=== PATIENT | female | born 1960 | race Caucasian/White ===

== ENCOUNTER → 2016-04-16 07:58 | Outpatient (CLI) | payer BC ==
[2013-10-31 18:40] VITALS: BMI 27.3
[~2016-04-16 07:58] MED LIST: ACETAMINOPHEN500 M1 PO; BAYER CHEWABLE81 MG PO; CALCIUM 600+D T1 TA1 PO; LIPITOR80 MG PO; MULTIPLE VITAMI1 TA1 PO; NECON 1/501 TAB PO
== END | disposition home or self-care (01) ==
LOC: D.RAD 07:58
DX: K21.9 Gastro-esophageal reflux disease without esophagitis (principal)

== ENCOUNTER 2016-08-08 06:24 | Emergency (ER) | payer BC ==
[2013-10-31 18:40] VITALS: BMI 27.3
[2016-08-08 07:09] LABS: BASOPHILS 0.4 % (0-2); HEMATOCRIT 45.7 % (36.0-48.0); HEMOGLOBIN 15.4 g/dL (12-16); IMMATURE GRANULOCYTES 0.1 % (0-5); LYMPHOCYTES 20.9 % (15-50); MCH 30.1 pg (26.0-34.0); MCHC 33.7 g/dL (31.0-37.0); MCV 89.3 fL (80.0-100.0); MEAN PLATELET VOLUME 10.6 fL (7.4-10.4); MONOCYTES 3.5 % (2-11); NEUTROPHILS 74.1 % (40-80); PLATELET COUNT 216 10x3/uL (130-400); RBC 5.12 10x6/uL (4.00-5.40); RDW 12.7 % (11.5-14.5); WBC 7.1 10x3/uL (4.8-10.8)
[2016-08-08 07:40] LABS: ALBUMIN 3.8 g/dL (3.4-5.0); ALKALINE PHOSPHATASE 97 U/L (46-116); ALT (SGPT) 42 U/L (10-68); BILIRUBIN - TOTAL 0.49 mg/dL (0.2-1.3); CALCIUM 8.9 mg/dL (8.5-10.1); CARBON DIOXIDE 20.2 mmol/L (21.0-32.0); CHOLESTEROL, TOTAL 195 mg/dL (0-200); CREATININE - SERUM 0.9 mg/dL (0.6-1.3); GLUCOSE 193 mg/dL (74-106); PROTEIN - SERUM 7.5 g/dL (6.4-8.2); TRIGLYCERIDE 91 mg/dL (30-200); UREA NITROGEN 18 mg/dL (7-18); eGFR NON AFRICAN AMERICAN 69 mL/min (90-120)
[2016-08-08 08:02] LABS: AMYLASE - SERUM 53 U/L (25-115); CALC OSMOLALITY 285 mosm/kg (275-300); CHLORIDE - SERUM 104 mmol/L (98-107); CHOL - HDL RATIO 3.7 ratio (2.3-4.1); CKMB 0.4 U/L (0.0-3.6); CREATINE KINASE 112 UL (21-215); HDL CHOLESTEROL 53 mg/dL (32-96); LDL CHOLESTEROL 124 mg/dL (0-100); LDL-HDL RATIO 2.3 ratio (1.5-3.5); LIPASE 241 U/L (73-393); POTASSIUM - SERUM 4.1 mmol/L (3.5-5.1); SODIUM 140 mmol/L (136-145); TROPONIN-I < 0.017 ng/mL (0.000-0.060)
== END 2016-08-08 08:37 | disposition home or self-care (01) ==
LOC: D.ER 06:24
PROVIDERS: Emergency Medicine
DX: R07.89 Other chest pain (principal); E78.5 Hyperlipidemia, unspecified

== ENCOUNTER 2016-11-04 10:46 | Outpatient (CLI) | payer BC ==
[~2016-11-04] VITALS: Ht 160 cm; Wt 72.7 kg
--- NOTE | ~2016-11-04 | HEMODYNAMI ---
PATIENT:RAMON CURTIS MEDICAL RECORD: [id number] : 64 LOCATION:[facility] ADMISSION DATE: 11/04/16 Generatedon:11/04/201613:48 Patient name: RAMON CURTIS Patient #: [id number] SSN: : 1960 Date of study: 11/04/2016 Page: Of Hemodynamic Procedure Report Patient Data Patient Demographics Procedure consent was obtained First Name: RAMON Gender: Female Last Name: KIRSTEN : 1960 Patient #: [id number] Age: 55 year(s) Race: Unknown Additional ID: [id number] Contact details Address: [address] [place] [address] State: [place] City: [place] Zip code: [address] Admission Admission Data Admission Date: 11/04/2016 Admission Time: 10:46 Procedure Procedure Types Cath Procedure Diagnostic Procedure LHC LHC w/Coronaries Miscellaneous Procedures Moderate Sedation up to 15 minutes Procedure Description Procedure Date Procedure Date: 11/04/2016 Procedure Start Time: 13:33 Procedure End Time: 13:47 Procedure Staff Name Function Catrachito Razo MD Performing Physician Paul Rosas RT Scrub Conchis Randhawa RT Scrub Bobo Mayer RN Nurse Curt Lai RN Printer Slotter Helper Alma Rosaev Guzman RT Monitor Procedure Data Cath Procedure Fluoroscopy Diagnostic fluoroscopy Total fluoroscopy Time: 3.6 time: 3.6 min min Diagnostic fluoroscopy Total fluoroscopy dose: 359 dose: 359 mGy mGy Contrast Material Contrast Material Type Amount (ml) Isovue 300 60 Entry Location Entry Primary Successful Side Size Upsize Upsize Entry Closure Vogel ccessful Closure Location (Fr) 1 (Fr) 2 (Fr) Remarks Device Remarks Radial Right 6 Fr Mechanical artery Short Compression Estimated blood loss: 5 ml Diagnostic catheters Device Type Used For End Catheter Placement Terumo 5Fr Ze 110cm LV Angiography catheter Terumo 5Fr Ze 110cm Right Coronary catheter Angiography Procedure Complications No complications Procedure Medications Medication Administration Route Dosage 0.9% NaCl I.V. 100 ml/hr Oxygen NC 2 l/min Heparin Flush Bag added to field 2 bags (1000units/500ml NS) Zofran I.V. 4 mg Versed I.V. 1 mg Fentanyl I.V. 50 mcg Radial Cocktail added to field 1 syringe (Verapomil 2mg/Nitro 400mcg/Heparin 1500units) Radial Cocktail I.A. 1 syringe (Verapomil 2mg/Nitro 400mcg/Heparin 1500units) Versed I.V. 1 mg Hemodynamics Rest Heart Rate: 92 (bpm) Pressure Samples Time Site Value (mmHg) Purpose Heart Use Rate(bpm) 13:36 LV 123/4,6 EDP 114 Gradients Valve Time Site Site Mean SEP/DFP Peak To Heart Use 1 2 (mmHg) (sec/min) Peak Rate (mmHg) (bpm) Aortic 13:37 LV AO 122 Snapshots Pre Cath Intra NCS Post Cath Vital Signs Time Heart Resp SPO2 etCO2 CU4kiye NIBP (mmHg) Rhythm Pain Sedation Rate (ipm) (%) (mmHg) (mmHg) Status Level (bpm) 13:20:41 106 19 93 0 0 133/91(110) NSR 0 (11) 10(A) , No pain 13:24:47 101 19 95 0 0 124/91(107) NSR 0 (11) 10(A) , No pain 13:28:51 108 22 96 0 0 134/88(97) NSR 0 (11) 10(A) , No pain 13:32:56 124 14 97 0 0 123/89(105) NSR 0 (11) 9(A) , No pain 13:37:48 119 21 96 0 0 117/72(85) NSR 0 (11) 9(A) , No pain 13:41:53 122 16 93 0 0 114/75(102) NSR 0 (11) 10(A) , No pain 13:45:57 108 22 95 0 0 113/77(94) NSR 0 (11) 10(A) , No pain Medications Time Medication Route Dose Verified Delivered Reason Notes Effectiveness by by 13:19:01 0.9% NaCl I.V. 100 Bobo Bobo Per ml/hr Moreno Mayer physician RN RN 13:19:18 Oxygen NC 2 l/min Bobo Bobo Per Moreno guerrero RN RN 13:20:05 Heparin Flush added 2 bags Bobo Bobo used for Bag to Moreno Mayer procedure (1000units/500ml field RN RN NS) 13:20:26 Zofran I.V. 4 mg Bobo Bobo Per Moreno Mayer physician RN RN 13:28:43 Versed I.V. 1 mg Bobo Bobo for sedation Moreno Mayer RN RN 13:28:57 Fentanyl I.V. 50 mcg Bobo Bobo for sedation Moreno Mayer RN RN 13:31:58 Radial Cocktail added 1 Bobo Bobo for (Verapomil to syringe Lorigan Lorigan vasodilation 2mg/Nitro field RN RN 400mcg/Heparin 1500units) 13:35:51 Radial Cocktail I.A. 1 Bobo Catrachito for (Verapomil syringe Lorigan [place]land vasodilation 2mg/Nitro RN 400mcg/Heparin 1500units) 13:36:18 Versed I.V. 1 mg Bobo Bobo for sedation Moreno Mayer RN motor assembler Log Time Note 13:09:32 Alma Rosa Guzman RT(R) sent for patient. Start room use. 13:09:38 Time tracking: Regular hours 13::43 Plan of Care:Hemodynamics will remain stable., Cardiac rhythm will remain stable., Comfort level will be maintained., Respiratory function will remain adequate., Patient/ family verbilizes understanding of procedure., Procedure tolerated without complication., Recovers from procedure without complications.. 13:17:07 Patient received from Pre/Post Procedure Room to [facility] 1 Alert and oriented. Tansferred to table in Supine position. 13:17:09 Warm blankets applied, and eh hugger turned on for patient comfort. 13:17:09 Correct patient and procedure confirmed by team. 13:17:10 Signed procedure consent form obtained from patient. 13:17:11 ECG and BP/O2 sat monitors applied to patient. 13:19:01 0.9% NaCl 100 ml/hr I.V. was administered by Bobo Mayer RN; Per physician; 13:19:18 Oxygen 2 l/min NC was administered by Bobo Mayer RN; Per physician; 13:19:41 Vital chart was started 13:20:05 Heparin Flush Bag (1000units/500ml NS) 2 bags added to field was administered by Bobo Mayer RN; used for procedure; 13:20:10 Baseline sample Acquired. 13:20:17 Rhythm: sinus rhythm 13:20:21 Full Disclosure recording started 13:20:26 Zofran 4 mg I.V. was administered by Bobo Mayer RN; Per physician; 13:20:37 H&P Date Dictated: 10/29/2016 Within 30 days and on chart., H&P Addendum completed by physician on day of procedure. (MUST COMPLETE FOR ALL OUTPATIENTS). 13:20:38 Pre-procedure instructions explained to patient. 13:20:39 Pre-op teaching completed and patient verbalized understanding. 13:20:41 Family in waiting room. 13:20:42 Patient NPO since Midnight. 13:20:44 Is the patient allergic to Iodine/contrast media? No. 13:20:46 Is patient on blood thinner?No 13:20:50 Patient diabetic? Yes. 13:20:51 If diabetic: On Metformin? No 13:21:03 HCG/Urine : completed and on chart, negative 13:21:06 Previous problem with sedation/anesthesia? No ? 13:21:08 Snore? Yes 13:21:09 Sleep apnea? No 13:21:10 Deviated septum? No 13:21:11 Opens mouth fully? Yes 13:21:12 Sticks out tongue? Yes 13:21:16 Airway obstruction? No ? 13:21:17 Dentures? No ? 13:21:49 Pre procedure: right dorsailis pedis pulse 1+ Palpable, but thready & weak; easily obliterated 13:21:51 Modified Fidel's test Ulnar < 7 seconds 13:21:54 Patient pain scale 0/10 ?. 13:21:58 IV patent on arrival in left forearm with 0.9% NaCl at [facility]. 13:22:00 Lab results completed and on chart. 13:22:04 Right Radial & Right Groin area was prepped with chlora-prep and draped in sterile fashion 13:22:05 Alarms reviewed by R. N. 13:22:05 Sharps counted by scrub and verified by R.N. 13:27:54 Use device set Radial Dx 13:27:54 Acist Syringe opened to sterile field. 13:27:55 Medline Cath Pack opened to sterile field. 13:27:55 Bag Decanter opened to sterile field. 13:27:56 Terumo 6Fr Slender Glidesheath opened to sterile field. 13:27:56 St Flavio 260cm J .035 wire opened to sterile field. 13:27:57 Acist Hand Control opened to sterile field. 13:27:57 Acist Manifold opened to sterile field. 13:27:57 Tegaderm 4 x 4 opened to sterile field. 13:27:59 MBrace Wrist Support opened to sterile field. 13:28:07 Final Timeout: patient, procedure, and site verified with staff and physician. All members of the team are in agreement. 13:28:10 Right Radial site verified by team. 13:28:12 Physical assessment completed. ASA score P 2 - A patient with mild systemic disease as per Catrachito Razo MD. 13:28:15 Sedation plan: IV Moderate Sedation Versed, Fentanyl 13:28:43 Versed 1 mg I.V. was administered by Bobo Mayer RN; for sedation; 13:28:57 Fentanyl 50 mcg I.V. was administered by Bobo Mayer RN; for sedation; 13:30:58 Zero performed for pressure channel P1 13:31:58 Radial Cocktail (Verapomil 2mg/Nitro 400mcg/Heparin 1500units) 1 syringe added to field was administered by Bobo Mayer RN; for vasodilation; 13:33:10 Procedure started. 13:33:31 Local anesthetic to right radial artery with Lidocaine 2% by Catrachito Razo MD.INITIAL ACCESS ONLY 13:34:06 A 6 Fr Short sheath was inserted into the Right Radial artery 13:35:10 A Terumo 5Fr Ze 110cm catheter was advanced over the wire and used for LV Angiography. 13:35:51 Radial Cocktail (Verapomil 2mg/Nitro 400mcg/Heparin 1500units) 1 syringe I.A. was administered by Catrachito Razo MD; for vasodilation; 13:36:18 Versed 1 mg I.V. was administered by Bobo Mayer RN; for sedation; 13:36:42 LV gram done using HOBBS 13:36:47 LV hemodynamics recorded. 13:36:49 Injector settings: Ml/sec: 5, Volume: 15, 13:36:56 EF : 60 % 13:38:21 A Terumo 5Fr Ze 110cm catheter was advanced over the wire and used for Right Coronary Angiography. 13:38:39 Catheter removed. 13:38:49 Medtronic Launcher 6Fr EBU 3.5 guide catheter opened to sterile field. 13:38:59 6 Fr EBU 3.5 guide catheter was inserted over the wire 13:40:13 LCA angiography performed. 13:42:29 Catheter removed. 13:42:38 Sheath removed intact; hemostasis achieved with Mechanical Compression to the Right Radial artery. 13:42:40 Procedure ended.(Physican Out) 13:42:54 Fluoroscopy time 03.60 minutes. 13:43:05 Flurop Dose total: 359 13:43:05 Fluoroscopy dose: 359 mGy 13:43:11 Contrast amount:Isovue 300 60ml. 13:43:12 Sharps counted by scrub and verified by R.N. 13:43:14 TR band inflated with 12cc of air. 13:43:15 Insertion/operative site no bleeding no hematoma. 13:43:30 Post right radial artery:stable, clean and dry 13:43:39 Post Procedure Pulses reassessed and unchanged 13:43:44 Post-procedure physical assessment completed. ASA score P 2 - A patient with mild systemic disease as per Catrachito Razo MD. 13:43:50 Post procedure rhythm: sinus rhythm 13:43:52 Estimated blood loss: 5 ml 13:44:03 Post procedure instruction explained to patient.Patient verbalizes understanding. 13:44:03 Patient needs reinforcement of post procedure teaching. 13:44:23 Procedure type changed to Cath procedure, Diagnostic procedure, LHC, LHC w/Coronaries, Miscellaneous Procedures, Moderate Sedation up to 15 minutes 13:44:29 Procedure Complication : No complications 13:44:31 See physician's report for complete and final results. 13:44:48 Terumo TR Band Standard opened to sterile field. 13:45:44 Procedure and supply charges have been captured, reviewed, submitted and are correct. 13:47:33 Vital chart was stopped 13:47:37 Report given to Pre/Post Procedure Room. 13:47:39 Patient transfered to Pre/Post Procedure Room with Stretcher. 13:47:49 Procedure ended. 13:47:49 Full Disclosure recording stopped 13:47:54 End room use (Document Last) Device Usage Item Name Manufacture Quantity Catalog Hospital Part Current Minimal Lot# / Number Charge Number Stock Stock Serial# Code Acist Acist 1 53577 [id number] 577544 214067 20 Syringe Medical Systems Inc Medline Cardinal 1 [id number] 369695 06580 592748 5 Cath Pack Health Bag Microtek 1 2002S 965339 48323 728522 5 Decanter Medical Inc. Terumo 6Fr Terumo 1 [id number] 093897 941056 585018 [address] Fl[address] St Flavio 1 988035 338536 704929 361437 30 260cm J .035 wire Acist Hand Acist 1 95940 368517 713730 389192 5 Control Medical Systems Inc Acist Acist 1 02610 715202 897993 572582 5 Manifold Medical Systems Inc Tegaderm 4 3M 1 1626W 856670 128753 803673 5 x 4 MBrace Advanced 1 140-0250-00 937760 64674 129844 5 Wrist Vascular Support Dynamics Terumo 5Fr Terumo 1 17-0486 266108 625747 137992 5 Ze 110cm catheter Medtronic Medtronic 1 [id number] 172465 77026 237554 3 Launcher 6Fr EBU 3.5 guide catheter Terumo TR Terumo 1 [id number] 004495 971786 493749 40 Band Standard Signature Audit [place] Stage Time Signature Unsigned Intra-Procedure 11/04/2016 Alma Rosa 1:48:05 PM Counts RT(R) Signatures Monitor : Alma Rosa Signature : Counts RT Date : Time : [facility] [address] [place] [address]
[2016-11-04] MEDS ORDERED: OMEPRAZOLE20 M1 PO (11:01)
[2016-11-04] MEDS ORDERED: OSCIMIN SR0.375 MG PO (11:02)
[2016-11-04] MEDS ORDERED: EXCEDRIN CAPLET1 TAB PO (11:02)
[2016-11-04 11:17] VITALS: BP 138/94; Ht 160 cm; Wt 72.7 kg
[2016-11-04 11:52] LABS: CALC OSMOLALITY 283 mosm/kg (275-300); CALCIUM 9.3 mg/dL (8.5-10.1); CHLORIDE - SERUM 104 mmol/L (98-107); CREATININE - SERUM 0.6 mg/dL (0.6-1.3); GLUCOSE 146 mg/dL (74-106); POTASSIUM - SERUM 4.2 mmol/L (3.5-5.1); SODIUM 139 mmol/L (136-145); UREA NITROGEN 20 mg/dL (7-18); eGFR NON AFRICAN AMERICAN > 90 mL/min (90-120)
[2016-11-04 12:06] LABS: BASOPHILS 0.4 % (0-2); EOSINOPHILS 1.7 % (0-7); HEMATOCRIT 45.7 % (36.0-48.0); HEMOGLOBIN 15.5 g/dL (12-16); IMMATURE GRANULOCYTES 0.4 % (0-5); MCH 30.3 pg (26.0-34.0); MCHC 33.9 g/dL (31.0-37.0); MCV 89.4 fL (80.0-100.0); MEAN PLATELET VOLUME 11.5 fL (7.4-10.4); MONOCYTES 5.7 % (2-11); NEUTROPHILS 61.8 % (40-80); RBC 5.11 10x6/uL (4.00-5.40); RDW 12.8 % (11.5-14.5); WBC 7.2 10x3/uL (4.8-10.8)
[2016-11-04 12:07] LABS: PLATELET COUNT 172 10x3/uL (130-400)
[2016-11-04 12:08] LABS: HCG URINE NEGATIVE (NEGATIVE)
--- NOTE | 2016-11-04 14:13 | NUR ---
TR BAND TO RIGHT WRIST- CDI, BRACE IN PLACE, NO BLEEDING TO SITE. WATER AND COLA SERVED WITH SANDWICH. FAMILY AT SIDE.
--- NOTE | 2016-11-04 14:45 | NUR ---
TR BAND INTACT, NO BLEEDING AT SITE, 2CC AIR OUT. FAMILY AT SIDE. DENIES NEEDS
--- NOTE | 2016-11-04 16:00 | NUR ---
IV D'C WITH CATH TIP INTACT, WRITTEN AND VERBAL D'C INSTRUCTIONS GIVEN TO PT AND FRIEND-VERBAL UNDERSTANDING NOTED. D'C HOME
--- NOTE | 2016-11-06 08:14 | OP ---
PATIENT NAME: RAMON CURTIS MEDICAL RECORD: [id number] :64 LOCATION:D.CAT ADMISSION DATE: SURGEON: DEA CARTWRIGHT MD DATE OF OPERATION: 11/04/2016 PROCEDURE: Left heart catheterization, selective coronary angiography, right radial approach. CATHETERS: [place] catheter and radial sheath. The procedure was well tolerated and the patient returned to yap. Sheath removed. TR band was placed. FINDINGS: Left ventriculography in 30-degree HOBBS view. Normal wall motion, normal systolic function. CORONARY ANATOMY. LEFT MAIN: Left main is free of disease. LAD: Free of disease in the diagonal system. CIRCUMFLEX: This is a codominant system and circumflex free of disease. RIGHT CORONARY ARTERY: Again, codominant system, free of disease. IMPRESSION: Normal left ventricular systolic function. Normal coronary anatomy. TRANSINT:[id number] Voice Confirmation ID: [id number] DOCUMENT ID: [id number] DEA CARTWRIGHT MD at 0814 CC: [id number] DICTATION DATE: 11/04/16 1402 KILNMAN: 11/04/16 1638 DEP CLI 11/04/16 [place] [id number] [place] [id number]
== END 2016-11-04 16:00 | disposition home or self-care (01) ==
LOC: D.CATH 10:46
PROVIDERS: Internal Medicine Interventional Cardiology
DX: I20.9 Angina pectoris, unspecified (principal); Z01.812 Encounter for preprocedural laboratory examination

== ENCOUNTER → 2017-09-03 09:35 | Outpatient (CLI) | payer BC ==
[2016-11-04 11:17] VITALS: BMI 28.4
[~2017-09-03 09:35] MED LIST changes: +EXCEDRIN CAPLET1 TAB PO; +OMEPRAZOLE20 M1 PO; +OSCIMIN SR0.375 MG PO
== END | disposition home or self-care (01) ==
LOC: D.MRI 09:35
DX: R10.12 Left upper quadrant pain (principal)

== ENCOUNTER → 2017-12-11 08:07 | Outpatient (CLI) | payer BC ==
[2016-11-04 11:17] VITALS: BMI 28.4
== END | disposition home or self-care (01) ==
LOC: D.MRI 08:00
DX: R10.12 Left upper quadrant pain (principal)